=== PATIENT | male | born 1950 | race Caucasian/White ===

== ENCOUNTER → 2020-07-15 | Outpatient (CLI) | payer MEDICARE, BC ==
[2020-07-15 10:46] LABS: BASO # 0.07 (0.02-0.10); EOS # 0.33 (0.04-0.40); EOS % 4.1 % (0.0-4.0); HEMATOCRIT 45.6 % (42.0-52.0); LYMPH# 1.43 (1.50-4.00); MEAN CELL VOLUME 91 fl (78-100); MEAN CORPUSCULAR HEMOGLOBIN 30 pg (27-31); MEAN CORPUSCULAR HGB CONC 33 g/dL (33-37); MEAN PLATELET VOLUME 8.6 fl (7.4-10.4); MONO # 0.78 (0.20-0.80); NEU # 5.38 (1.40-6.50); PLATELET COUNT 312 K/mm3 (130-400); RED BLOOD COUNT 5.02 M/mm3 (4.20-5.60); RED CELL DISTRIBUTION WIDTH 12.7 % (11.5-14.5)
[2020-07-15 11:01] LABS: ALBUMIN 4.1 g/dL (3.4-4.8); POTASSIUM 4.2 mmol/L (3.5-5.1)
[2020-07-15 11:02] LABS: CALCIUM 9.3 mg/dL (8.3-10.5)
[2020-07-15 11:03] LABS: TOTAL PROTEIN 8.5 g/dL (6.2-8.1)
[2020-07-15 11:05] LABS: TOTAL BILIRUBIN 0.4 mg/dL (0.2-1.2)
== END ==
LOC: LAB 10:13
PROVIDERS: Internal Medicine
DX: Z12.5 Encounter for screening for malignant neoplasm of prostate (principal); K90.9 Intestinal malabsorption, unspecified; E78.2 Mixed hyperlipidemia; R73.9 Hyperglycemia, unspecified

== ENCOUNTER → 2020-07-18 | Outpatient (CLI) | payer MEDICARE, BC | LOC: LAB 09:37 | DX: Z12.11 Encounter for screening for malignant neoplasm of colon (principal) ==

== ENCOUNTER → 2023-10-13 | Outpatient (CLI) | payer MEDICARE, BC ==
[2023-10-13 11:01] LABS: BASO # 0.05 K/mm3 (0.02-0.10); EOS # 0.27 K/mm3 (0.04-0.40); EOS % 3.6 % (0.0-4.0); HEMATOCRIT 46.2 % (42.0-52.0); LYMPH# 1.44 K/mm3 (1.50-4.00); MEAN CELL VOLUME 94 fl (78-100); MEAN CORPUSCULAR HEMOGLOBIN 31 pg (27-31); MEAN CORPUSCULAR HGB CONC 33 g/dL (33-37); MEAN PLATELET VOLUME 8.8 fl (7.4-10.4); MONO # 0.69 K/mm3 (0.20-0.80); NEU # 5.08 K/mm3 (1.40-6.50); PLATELET COUNT 311 K/mm3 (130-400); RED BLOOD COUNT 4.92 M/mm3 (4.20-5.60); RED CELL DISTRIBUTION WIDTH 12.9 % (11.5-14.5); WHITE BLOOD COUNT 7.5 K/mm3 (4.8-10.8)
[2023-10-13 11:12] LABS: ALBUMIN 4.1 g/dL (3.4-4.8)
[2023-10-13 11:15] LABS: TOTAL PROTEIN 8.4 g/dL (6.2-8.1)
[2023-10-13 11:17] LABS: TOTAL BILIRUBIN 0.5 mg/dL (0.2-1.2)
[2023-10-13 11:22] LABS: MAGNESIUM 2.18 mg/dL (1.60-2.60)
[2023-10-13 11:26] LABS: URINE APPEARANCE CLEAR (CLEAR); URINE COLOR YELLOW (YELLOW)
[2023-10-13 11:27] LABS: URINE BILIRUBIN NEGATIVE (NEGATIVE); URINE BLOOD NEGATIVE (NEGATIVE); URINE GLUCOSE NEGATIVE (NEGATIVE); URINE KETONE TRACE (NEGATIVE); URINE LEUKOCYTE ESTERASE NEGATIVE (NEGATIVE); URINE NITRATE NEGATIVE (NEGATIVE); URINE PROTEIN(semi-quant) NEGATIVE (NEGATIVE)
[2023-10-13 11:28] LABS: URINE MUCUS PRESENT (NOT PRESENT)
[2023-10-14 08:04] LABS: TESTOSTERONE 316 ng/dL (221-716)
[2023-10-14 08:05] LABS: HEPATITIS C VIRUS ANTIBODY Negative (Nonreactiv)
== END ==
LOC: LAB 10:31
PROVIDERS: Internal Medicine
DX: Z12.5 Encounter for screening for malignant neoplasm of prostate (principal); Z12.11 Encounter for screening for malignant neoplasm of colon; Z11.59 Encounter for screening for other viral diseases; K90.9 Intestinal malabsorption, unspecified; E78.2 Mixed hyperlipidemia; F52.21 Male erectile disorder; R73.03 Prediabetes

== ENCOUNTER → 2023-10-21 | Outpatient (CLI) | payer MEDICARE, BC | LOC: LAB 13:56 | DX: Z12.5 Encounter for screening for malignant neoplasm of prostate (principal); Z12.11 Encounter for screening for malignant neoplasm of colon; Z11.59 Encounter for screening for other viral diseases; K90.9 Intestinal malabsorption, unspecified; E78.2 Mixed hyperlipidemia; R73.03 Prediabetes; F52.21 Male erectile disorder ==